=== PATIENT | female | born 1975 | race Native Hawaiian/Other Pacific Islander ===

== ENCOUNTER 2022-04-26 13:00 | Outpatient (CLI) | payer BC | END 2022-04-26 20:29 | disposition home or self-care (01) | LOC: MAMMO 13:00 | PROVIDERS: ATTEND Obstetrics & Gynecology | DX: Z12.31 Encounter for screening mammogram for malignant neoplasm of breast (principal) ==

== ENCOUNTER 2023-05-15 08:29 | Outpatient (CLI) | payer OTHER | END 2023-05-15 19:16 | disposition home or self-care (01) | LOC: MAMMO 08:29 | PROVIDERS: ATTEND Obstetrics & Gynecology | DX: Z12.31 Encounter for screening mammogram for malignant neoplasm of breast (principal) ==